=== PATIENT | female | born 1990 | race Caucasian/White ===

== ENCOUNTER 2017-01-20 18:46 | Emergency (ER) | payer BC ==
--- NOTE | ~2017-01-20 | ER ---
PATIENT'S NAME: PJ LOPES [facility] AGE: 26 Y [address] ROOM: [place] [address] LOCATION: [facility] ADMIT DATE: 01/20/2017 ER/Outpatient Report DISCHARGE DATE: 01/20/2017 FAMILY PHYSICIAN: Cliff Mendez MD ATTENDING PHYSICIAN: Viktor Alvarenga Time of Evaluation: Seen at 1905 hours. CHIEF COMPLAINT: Chronic low back pain. HISTORY OF PRESENT ILLNESS: The patient is a 26-year-old, white female, who over the last several months has had chronic back pain. The patient used to see Dr. John Bowles at [facility], who then referred her to Dr. Jolly. The patient has also been seen by Dr. Burnett in [place]. She has had at least 2 MRIs with that and showed nothing significant to require any operation. The patient has recently been seeing by Dr. Cates, the pain specialist. She currently is on tramadol for pain. She also had a steroid injection in her low back approximately a week ago. The patient states that the tramadol or the injection has not helped. She denies any fever or chills today. She has had no change in her bowel or bladder habits. MEDICAL HISTORY: ALLERGIES: NONE. CURRENT MEDICATIONS: Include, 1. Mobic. 2. Tramadol. MEDICAL HISTORY: No previous back injuries. She did state when she was 9 or 11 was seen in [place] for joint pain. Otherwise, no other chronic diseases. SOCIAL HISTORY: Denies tobacco or alcohol use. 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 She has kids at home. REVIEW OF SYSTEMS: Today, GENERAL: No fevers or chills today. HEAD/ENT: No complaints of any headache or neck pain. PATIENT'S NAME: PJ LOPES [facility] AGE: 26 Y [address] ROOM: [place] [address] LOCATION: [facility] ADMIT DATE: 01/20/2017 ER/Outpatient Report DISCHARGE DATE: 01/20/2017 FAMILY PHYSICIAN: Cliff Mendez MD ATTENDING PHYSICIAN: Viktor Alvarenga RESPIRATORY: No shortness of breath. No cough. CARDIOVASCULAR: Negative. GASTROINTESTINAL: Has had no weight loss, no change in her bowel or bladder habits. GENITOURINARY: No dysuria. MUSCULOSKELETAL: Includes pain in her low back, some hip pain; it has some radiation to her left leg. NEUROLOGIC: No numbness or tingling to her lower extremities. PHYSICAL EXAMINATION: VITAL SIGNS: Temperature was 98, blood pressure 126/76, respiratory rate 16, pulse 76, and O2 saturations were 99%. GENERAL APPEARANCE: She walked to the exam room. There was no noticeable list. HEAD/ENT: No cervical tenderness. ABDOMEN: There were no masses palpated and nontender. BACK: Tenderness seemed to be just at the sacral area. Some central tenderness in the lower lumbar area. NEUROLOGIC: She was able to walk on her toes, heels. Strength appeared normal. She did not appear to have any sciatic stretch symptoms. Reflexes, patellar, were quite active. Sensation to light touch seemed normal bilaterally. ASSESSMENT: Chronic back pain. PLAN: Short-term pain relief tonight with Toradol 60 mg IM. [place] 5/325, 1 or 2 every 4 to 6 hours, 20 prescribed. Recommended that she make an appointment with Dr. Mendez tomorrow for followup. The patient was given a note or excuse for work tomorrow. LENNOX BENAVIDEZ FOR MD KARYN MATTHEWS/dukel /[id number] d: 01/21/17 0158 t: 01/27/17 1212, OUTPATIENT REPORT
== END 2017-01-20 19:29 | disposition disaster alternative care site (69) ==
LOC: GMED 18:46
DX: G89.29 Other chronic pain (principal); M54.5 Low back pain
CPT/HCPCS: J1885

== ENCOUNTER 2017-03-23 10:39 | Emergency (ER) | payer BC ==
--- NOTE | ~2017-03-23 | ER ---
PATIENT'S NAME: PJ LOPES [facility] AGE: 27 Y [address] ROOM: [place] [address] LOCATION: ED ADMIT DATE: 03/23/2017 ER/Outpatient Report DISCHARGE DATE: 03/23/2017 FAMILY PHYSICIAN: Cliff Mendez MD ATTENDING PHYSICIAN: Rocky Kirby Time of Arrival: Time of Evaluation: Seen at about 1150 hours. CHIEF COMPLAINT: Pain. HISTORY OF PRESENT ILLNESS: The patient is a 27-year-old female with history of chronic pain. She said over the last 24 hours, her pain has escalated, especially in her low back, hip area. She has had no fever or chills. She said she has recently saw a program director/traffic director in [place] and he has referred her to another provider in [place] for pain support. The patient's only pain medicine has been Aleve, Tylenol, and she does take gabapentin occasionally, but not on a regular basis. PAST MEDICAL HISTORY: ALLERGIES: NO MEDICINAL ALLERGIES. CURRENT MEDICATIONS: See her copied list. MEDICAL HISTORY: Includes: The somewhat unknown chronic pain issue. PAST SURGICAL HISTORY: Surgeries: She had a surgery on her jaw and left hand. SOCIAL HISTORY: Smoker, half pack a day. No alcohol. Does not exercise regularly. REVIEW OF SYSTEMS: GENERAL: Today, no fever or chills. HEAD AND EENT: Denies any headaches or sore throat. RESPIRATORY: No recent cough or shortness of breath. GASTROINTESTINAL: No recent weight loss. MUSCULOSKELETAL: Includes somewhat generalized pain more so in her back, left hip. PATIENT'S NAME: PJ LOPES [facility] AGE: 27 Y [address] ROOM: [place] [address] LOCATION: ED ADMIT DATE: 03/23/2017 ER/Outpatient Report DISCHARGE DATE: 03/23/2017 FAMILY PHYSICIAN: Cliff Mendez MD ATTENDING PHYSICIAN: Rocky Kirby ASSESSMENT: Chronic pain. PLAN: Toradol 60 mg IM. Recommend she continue the Naprosyn 500 b.i.d. Follow up with her program director/traffic director or family doctor tomorrow if pain continues. LENNOX BENAVIDEZ FOR DO KARYN BRADLEY/modl /[id number] d: 03/23/17 1223 t: 03/26/17 1201, OUTPATIENT REPORT
== END 2017-03-23 11:24 | disposition disaster alternative care site (69) ==
LOC: GMED 10:39
DX: G89.29 Other chronic pain (principal); M54.5 Low back pain; M25.552 Pain in left hip; F17.210 Nicotine dependence, cigarettes, uncomplicated; Z98.890 Other specified postprocedural states; Z79.899 Other long term (current) drug therapy
CPT/HCPCS: J1885

== ENCOUNTER → 2017-06-20 | Outpatient (CLI) | payer BC | END | disposition disaster alternative care site (69) | LOC: GRAD 10:44 | DX: M54.9 Dorsalgia, unspecified (principal) | CPT/HCPCS: A9503 ==